=== PATIENT | female | born 1990 | race Caucasian/White ===

== ENCOUNTER → 2017-04-22 | Outpatient (CLI) | payer OTHER ==
[~2017-04-22] MED LIST: FERR27TA5; MULT-884
[2017-04-22 12:10] LABS: BASO % 0.2 %; BASO ABS # 0.01 K/uL (0-0.2); COMPLETE YES; EOS % 1.6 %; HEMATOCRIT 40.1 % (37-47); IG% 0.3 %; LYMPH % 15.7 %; LYMPH ABS # 0.96 K/uL (1.2-3.4); MEAN CELL VOLUME 83.7 fL (80-100); MEAN CORPUSCULAR HGB CONC 34.7 g/dl (32-36); MONO % 8.3 %; NEUT % 73.9 %; PLATELET COUNT 193 K/uL (130-400); RED BLOOD COUNT 4.79 M/uL (4.2-5.4); WHITE BLOOD COUNT 6.11 K/uL (4.8-10.8)
== END | disposition home or self-care (01) ==
LOC: C.LABBFT 08:29
PROVIDERS: ATTEND Nurse Practitioner
DX: D64.9 Anemia, unspecified (principal)

== ENCOUNTER 2021-09-16 09:03 | Inpatient (IN) ==
--- NOTE | 2021-09-16 09:37 | Emergency Department Note ---
History of Present Illness General Chief Complaint: Throat Pain Stated Complaint: BACTERIA INFECTION IN MOUTH, THROAT SWELLING UP Source: family (father) Mode of arrival: ambulatory Limitations: other (autism, severe) History of Present Illness Provider Complaint: + other (R facial submandibular swelling, hard to swallow) Onset (ago): 3 [address]) [address]: + home (Lives at [facility]) Severity: + severe Maximum Pain Intensity: 8 Quality: + aching Duration: + constant Relieved By: + none Associated symptoms: + other (no fever. hard to swallow. ) Treatments prior to arrival: + other (PCN through dentist. ) HPI Narrative: 30-year-old female presents emergency department with her father Increased right-sided facial swelling and pain over the last 3 to 4 days. Seen by the dentist and started on penicillin. Patient was told this is not related to her teeth but a bad soft tissue infection. Patient complained of difficulty swallowing and perhaps difficulty breathing today. There has been no vomiting, fever or drooling. Patient does have a history of developmental delay. Home Medications Medication Instructions Recorded Confirmed Type ferrous sulfate 325 mg (65 mg 325 mg PO QAM 09/16/21 09/16/21 History iron) tablet penicillin V potassium 500 mg 500 mg PO QAM 09/16/21 09/16/21 History tablet Allergies Allergy/AdvReac Type Severity Reaction Status Date / Time No Known Allergies Allergy Unverified 09/16/21 10:51 Past Med/Surg History Medical History Anemia Cough Developmental disability Surgical History Hx of removal of ovary Social History (Updated 09/16/21 @ 15:15 by Nellie Cruz MD) Smoking Status: Never smoker Hx Alcohol Use: No Hx Substance Use: No Preferred Language: [place] [employer] Required: No Beliefs That Will Affect Care: None marital status: Single Current Living Situation: Family Current Living Situation Comment: [facility] Feels Safe at Home: Yes Dental Care, Regularly: Yes Assistive Devices: None Review of Systems Unobtainable due to mental health condition History obtained largely from father. Physical Exam Vital Signs: Vital Signs - 24 hr 09/16/21 09:06 09/16/21 10:55 09/16/21 11:14 Temperature 36.7 C Temperature Source Temporal Artery Sc an Pulse Rate 82 Pulse Rate [Finger ] 73 83 Respiratory Rate 20 18 18 Respiratory Effort / Characteristics Non-Labored Respiratory Depth Normal Normal Blood Pressure 142/84 H Blood Pressure [Le ft Arm] 132/87 113/91 Blood Pressure Michelle n 103 Blood Pressure Michelle n [Left Arm] 102 98 Blood Pressure Pos ition [Left Arm] Lying Pulse Oximetry 98 98 96 Oxygen Delivery Me thod Room Air Room Air Sepsis Recent Feve r Within 48 Hours No Sepsis New/Unexpla ined Change in Men omar Status N/A Sepsis Action Take n by Nursing No Action Required Physical Exam: Vital signs reviewed. General: Well-appearing 30-year-old female, in no significant distress. HEENT: No scleral icterus, PERRLA, neck supple. Moist mucous membranes, positive trismus, saliva pooling under the tongue. Positive tenderness and soft tissue edema to the submandibular region without lymphadenopathy appreciated. There is no mass or fluctuance. No apparent cellulitis externally. TMs are clear bilaterally. Cardiovascular: Regular rate and rhythm, no extra sounds. Pulmonary: Clear to auscultation bilaterally, normal work of breathing. Abdomen: Soft, nontender, nondistended, positive bowel sounds. Musculoskeletal: Atraumatic, no peripheral edema. Neurologic: Patient awake alert and appropriate. Answers questions appropriately and at baseline according to parents. Skin: Warm, dry, no rash Course Administered Medications Chlorhexidine Gluconate (Chlorhexidine Gluconate 0.12% 480 Ml) 15 ml MT Q8 [facility] Stop: 10/16/21 21:59 Last Admin: 09/17/21 05:29 Dose: 15 ml Documented by: [id number] Admin: 09/16/21 21:28 Dose: 15 ml Documented by: [id number] Heparin Sodium (Porcine) (Heparin Sod 5,000 Unit/0.5 Ml Vial) 5,000 units SQ Q12 [facility] Stop: 10/16/21 20:59 Last Admin: 09/16/21 21:14 Dose: Not Given Documented by: [id number] Ampicillin Sodium/Sulbactam Sodium 3,000 mg/ Sodium Chloride 108 mls @ 200 mls/hr IV Q6H [facility]; Protocol Stop: 09/26/21 15:59 Last Infusion: 09/17/21 04:50 Dose: 0 mls/hr Documented by: [id number] Admin: 09/17/21 03:58 Dose: 200 mls/hr Documented by: [id number] Infusion: 09/16/21 22:12 Dose: 0 mls/hr Documented by: [id number] Admin: 09/16/21 21:22 Dose: 200 mls/hr Documented by: [id number] Infusion: 09/16/21 17:58 Dose: 0 mls/hr Documented by: [id number] Admin: 09/16/21 17:26 Dose: 200 mls/hr Documented by: [id number] Dexamethasone 10 mg/ Syringe 2.5 mls @ 1 mls/min IV Q8H [facility] Stop: 10/16/21 17:59 Last Admin: 09/17/21 02:14 Dose: 1 mls/min Documented by: [id number] Admin: 09/16/21 17:26 Dose: 1 mls/min Documented by: [id number] Discontinued Medications Dexamethasone (Dexamethasone Sod Inj 4 Mg/Ml Vial) 10 mg IV NOW STA Stop: 09/16/21 09:41 Last Admin: 09/16/21 09:57 Dose: 10 mg Documented by: [id number] Sodium Chloride (Nss 1000ml) 1,000 mls @ 999 mls/hr IV .Q1H1M ONE Stop: 09/16/21 10:40 Last Infusion: 09/16/21 10:56 Dose: 0 mls/hr Documented by: [id number] Admin: 09/16/21 09:50 Dose: 999 mls/hr Documented by: [id number] Ampicillin Sodium/Sulbactam Sodium 3,000 mg/ Sodium Chloride 108 mls @ 200 mls/hr IV NOW STA; Protocol Stop: 09/16/21 10:15 Last Infusion: 09/16/21 10:56 Dose: 0 mls/hr Documented by: [id number] Admin: 09/16/21 10:12 Dose: 200 mls/hr Documented by: [id number] Ioversol (Optiray 320 100ml) 94 ml IV ONCE ONE Stop: 09/16/21 11:07 Last Admin: 09/16/21 11:08 Dose: 94 ml Documented by: [id number] Medical Decision Making Differential Diagnosis Dental caries, dental abscess, Ludwigs angina, Vincent angina, dental fracture, facial cellulitis, parotitis, osteomyelitis, sinus infection, peritonsillar abscess. Medical Records Attestation: I reviewed the patient's medical records. Home Medications Current Medication List: was personally reviewed by me Laboratory Data Attestation: I reviewed the patient's lab results. Result diagrams: 09/17/21 04:52 09/16/21 09:50 Lab Results 09/16/21 09/16/21 09/16/21 Range/Units 09:50 09:50 09:50 WBC 6.93 (4.8-10.8) K/uL RBC 4.45 (4.2-5.4) M/uL Hgb 12.1 (12.0-16.0) g/dL Hct 36.6 L (37-47) % MCV 82.2 (80-100) fL MCH 27.2 (25-34) pg MCHC 33.1 (32-36) g/dL RDW Std Deviation 41.2 (36.4-46.3) fL RDW Coeff of Bridger 13.5 (11.5-14.5) % Plt Count 203 (130-400) K/uL MPV 10.5 H (7.4-10.4) fL Immature Gran % (Auto) 0.1 % Neut % (Auto) 76.2 % Lymph % (Auto) 13.9 % Nash % (Auto) 8.8 % Eos % (Auto) 1.0 % Baso % (Auto) 0.0 % Neut # (Auto) 5.28 (1.4-6.5) K/uL Lymph # (Auto) 0.96 L (1.2-3.4) K/uL Nash # (Auto) 0.61 H (0.11-0.59) K/uL Eos # (Auto) 0.07 (0-0.5) K/uL Baso # (Auto) 0.00 (0-0.2) K/uL Immature Gran # (Auto) 0.01 (0.00-0.02) K/uL Sodium 138 (136-145) mmol/L Potassium 3.7 (3.5-5.1) mmol/L Chloride 102 (98-107) mmol/L Carbon Dioxide 30 (21-32) mmol/L Anion Gap 6 (3-11) BUN 13 (6-23) mg/dl Creatinine 0.76 (0.6-1.2) mg/dl Est Cr Clr Drug Dosing 116.4 ml/min Est GFR ( Amer) 121.1 ml/min Est GFR (Non-Af Amer) 104.5 ml/min BUN/Creatinine Ratio 17.1 (10-20) Glucose 99 (70-99(Fasting)) mg/dl Lactate 0.7 (0.4-2.0) mmol/L Calcium 9.0 (8.5-10.1) mg/dl Total Bilirubin 0.8 (0.2-1.0) mg/dl AST 9 L (13-39) U/L ALT 26 (7-52) U/L Alkaline Phosphatase 80 (34-104) U/L Total Protein 7.1 (6.0-8.3) gm/dl Albumin 4.0 (3.4-5.0) gm/dl Globulin 3.1 (2.5-4.0) gm/dl Albumin/Globulin Ratio 1.3 (0.9-2) HCG, Qual (Negative) SARS-CoV-2, RNA, NAAT (NEGATIVE) 09/16/21 09/16/21 Range/Units 09:50 09:55 WBC (4.8-10.8) K/uL RBC (4.2-5.4) M/uL Hgb (12.0-16.0) g/dL Hct (37-47) % MCV (80-100) fL MCH (25-34) pg MCHC (32-36) g/dL RDW Std Deviation (36.4-46.3) fL RDW Coeff of Bridger (11.5-14.5) % Plt Count (130-400) K/uL MPV (7.4-10.4) fL Immature Gran % (Auto) % Neut % (Auto) % Lymph % (Auto) % Nash % (Auto) % Eos % (Auto) % Baso % (Auto) % Neut # (Auto) (1.4-6.5) K/uL Lymph # (Auto) (1.2-3.4) K/uL Nash # (Auto) (0.11-0.59) K/uL Eos # (Auto) (0-0.5) K/uL Baso # (Auto) (0-0.2) K/uL Immature Gran # (Auto) (0.00-0.02) K/uL Sodium (136-145) mmol/L Potassium (3.5-5.1) mmol/L Chloride (98-107) mmol/L Carbon Dioxide (21-32) mmol/L Anion Gap (3-11) BUN (6-23) mg/dl Creatinine (0.6-1.2) mg/dl Est Cr Clr Drug Dosing ml/min Est GFR ( Amer) ml/min Est GFR (Non-Af Amer) ml/min BUN/Creatinine Ratio (10-20) Glucose (70-99(Fasting)) mg/dl Lactate (0.4-2.0) mmol/L Calcium (8.5-10.1) mg/dl Total Bilirubin (0.2-1.0) mg/dl AST (13-39) U/L ALT (7-52) U/L Alkaline Phosphatase (34-104) U/L Total Protein (6.0-8.3) gm/dl Albumin (3.4-5.0) gm/dl Globulin (2.5-4.0) gm/dl Albumin/Globulin Ratio (0.9-2) HCG, Qual Negative (Negative) SARS-CoV-2, RNA, NAAT NEGATIVE (NEGATIVE) Imaging Data Radiologist's Impression: Soft Tissue Neck CT 09/16/21 09:40 CT soft tissue neck w con HISTORY: R facial and neck swelling, ? Ludwigs TECHNIQUE: Multiaxial CT images of the neck were performed following the intravenous administration of 94 cc of Optiray 320. Sagittal and coronal reformations were performed at the workstation by the radiologist. COMPARISON STUDY: None. FINDINGS: Suboptimal evaluation of the neck due to the motion artifact. The orbits and visualized brain parenchyma are unremarkable. The thyroid gland enhances normally. The lung apices are clear. No fractures within the visualized osseous structures. The major cervical vessels are likely patent. Epiglottis appears normal in thickness. There is asymmetric soft tissue thickening/edema along the right palatine tonsil and right aryepiglottic fold best seen on image 217. This results in effacement of the right piriform sinus. However, no si gnificant airway compromise at this time. Evaluation the of right mandibular region is suboptimal due to the motion artifact at this location. There is soft tissue thickening and mild inflammatory change at the angle of the right hemimandible and masseter muscle. No definite loculated fluid collections to suggest an abscess. There may be inflammatory change surrounding the right submandibular gland and inferior aspect of the right parotid gland. Prevertebral soft tissues appear grossly intact. No definite loculated fluid collections to suggest an abscess. No definite masses identified. There is mild skin thickening along the right mandible with a few prominent right submandibular lymph nodes. Small retention cyst within the left maxillary sinus. The mastoid air cells are hypoplastic but clear. No bony destruction. IMPRESSION: 1. Difficult evaluation of the neck due to the motion artifact. 2. Asymmetric soft tissue thickening and fat stranding centered at the angle of the right hemimandible which involves the right masseter muscle, right submandibular gland, inferior right parotid gland, right palatine tonsil, and right aryepiglottic fold. This favors an infectious process. No definite abscess or mass identified. 3. There is effacement of the right piriform sinus without significant airway compromise. 4. The epiglottis and prevertebral soft tissues appear normal in thickness. 5. No underlying bony destruction. ACT 112: Negative or not required by law. Electronically signed by: Kane Montes De Oca M.D. 09/16/2021 11:20 AM Blood Pressure Blood Pressure Findings: Normal blood pressure Blood Pressure Disposition: did not require urgent referral MDM Narrative This patient was evaluated and appeared to be in no significant distress. IV access was obtained and laboratory work was drawn. The patient was placed on a groundwater monitoring technician at 73 bpm. She was hydrated with normal saline solution and given Unasyn 3.[address] imaging of the soft tissues neck was performed and is read as below without any apparent abscess or drainable fluid collection. The airway is patent. There is significant inflammatory/change. Patient was g iven 10 mg of IV Decadron. The case was discussed with ENT who has recommended continued IV Unasyn and 10 mg of Decadron every 8 hours for the next [address] Perales will see the patient in the hospital and has requested hospitalist consultation. Patient's parents were updated regarding the plan and have agreed. Impression & Plan Sialoadenitis, Acute parotitis Discharge Plan Visit Data Chief Complaint: Throat Pain Stated Complaint: BACTERIA INFECTION IN MOUTH, THROAT SWELLING UP Discharge Problem: Sialoadenitis, Acute parotitis Patient Disposition: Admitted As Inpatient Discharge Instructions Interventions: ED Discharge Assessment Last Done: 09/16/21 14:43
[2021-09-16] MEDS ORDERED: SODIUM CHLORIDE 0.9% 1000ML 1,000 ML IV ONE (09:40)
[2021-09-16] MEDS ORDERED: DEXAMETHASONE SOD INJ 4 MG/ML VIAL IV STA (09:40)
[2021-09-16] MEDS ORDERED: AMPICILLIN/SULBACTAM SOD 3,000 MG in 0.9 % SODIUM CHLORIDE 100 ML IV STA (09:43)
[2021-09-16 10:09] LABS: Eosinophils # (auto) 0.07 K/uL (0-0.5); Hematocrit (blood only) 36.6 % (37-47); Hemoglobin 12.1 g/dL (12.0-16.0); Immature Granulocytes # (auto) 0.01 K/uL (0.00-0.02); Immature Granulocytes % (auto) 0.1 %; Lymphocytes # (auto) 0.96 K/uL (1.2-3.4); Lymphocytes % (auto) 13.9 %; Mean Corpuscular Hemoglobin 27.2 pg (25-34); Mean Corpuscular Hgb Conc 33.1 g/dL (32-36); Mean Corpuscular Volume 82.2 fL (80-100); Mean Platelet Volume 10.5 fL (7.4-10.4); Monocytes # (auto) 0.61 K/uL (0.11-0.59); Monocytes % (auto) 8.8 %; Neutrophils # (auto) 5.28 K/uL (1.4-6.5); Neutrophils % (auto) 76.2 %; Platelet Count 203 K/uL (130-400); RDW Coefficient of Variation 13.5 % (11.5-14.5); RDW Standard Deviation 41.2 fL (36.4-46.3); Red Blood Count 4.45 M/uL (4.2-5.4); White Blood Count 6.93 K/uL (4.8-10.8)
[2021-09-16 10:22] LABS: Pregnancy Test, Serum Negative (Negative)
[2021-09-16 10:58] LABS: Albumin Globulin Ratio 1.3 (0.9-2); BUN Creatinine Ratio 17.1 (10-20); Bilirubin,Total 0.8 mg/dl (0.2-1.0); Creatinine Clr Calc Pharmacy 116.4 ml/min; Est GFR (African American) 121.1 ml/min; Est GFR (Non-African American) 104.5 ml/min; Globulin 3.1 gm/dl (2.5-4.0); Potassium 3.7 mmol/L (3.5-5.1); Total Protein 7.1 gm/dl (6.0-8.3)
[2021-09-16] MEDS ORDERED: OPTIRAY 320 100ml IV ONE (11:06)
--- NOTE | 2021-09-16 11:21 | CT Scan Report ---
CT soft tissue neck w con HISTORY: R facial and neck swelling, ? Ludwigs TECHNIQUE: Multiaxial CT images of the neck were performed following the intravenous administration o f 94 cc of Optiray 320. Sagittal and coronal reformations were performed at the workstation by the ra diologist. COMPARISON STUDY: None. FINDINGS: Suboptimal evaluation of the neck due to the motion artifact. The orbits and visualized bra in parenchyma are unremarkable. The thyroid gland enhances normally. The lung apices are clear. No fr actures within the visualized osseous structures. The major cervical vessels are likely patent. Epigl ottis appears normal in thickness. There is asymmetric soft tissue thickening/edema along the right p alatine tonsil and right aryepiglottic fold best seen on image 217. This results in effacement of the right piriform sinus. However, no significant airway compromise at this time. Evaluation the of righ t mandibular region is suboptimal due to the motion artifact at this location. There is soft tissue t hickening and mild inflammatory change at the angle of the right hemimandible and masseter muscle. No definite loculated fluid collections to suggest an abscess. There may be inflammatory change surroun ding the right submandibular gland and inferior aspect of the right parotid gland. Prevertebral soft tissues appear grossly intact. No definite loculated fluid collections to suggest an abscess. No defi nite masses identified. There is mild skin thickening along the right mandible with a few prominent r ight submandibular lymph nodes. Small retention cyst within the left maxillary sinus. The mastoid air cells are hypoplastic but clear. No bony destruction. IMPRESSION: 1. Difficult evaluation of the neck due to the motion artifact. 2. Asymmetric soft tissue thickening and fat stranding centered at the angle of the right hemimandibl e which involves the right masseter muscle, right submandibular gland, inferior right parotid gland, right palatine tonsil, and right aryepiglottic fold. This favors an infectious process. No definite a bscess or mass identified. 3. There is effacement of the right piriform sinus without significant airway compromise. 4. The epiglottis and prevertebral soft tissues appear normal in thickness. 5. No underlying bony destruction. ACT 112: Negative or not required by law. Electronically signed by: Kane Montes De Oca M.D. 09/16/2021 11:20 AM
[2021-09-16] MEDS ORDERED: AMPICILLIN/SULBACTAM SOD 1,500 MG in 0.9 % SODIUM CHLORIDE 100 ML IV SCH (12:45)
--- NOTE | 2021-09-16 13:13 | History & Physical Report ---
Date of Service September 16, 2021 Assessment & Plan (1) Infection of mouth: Plan: Patient with infection of mouth/soft tissue of the neck vs. tooth/bone- without epiglottis or local cellulitis - Asymmetric soft tissue thickening and fat stranding centered at the angle of the right hemimandible which involves the right masseter muscle, right submandibular gland, inferior right parotid gland, right palatine tonsil, and right aryepiglottic fold. This favors an infectious process. No definite abscess or mass identified. - Patient is exquisite tender to right angle of the mandible and lateral submandibular space, anterior cervical lymph nodes and subclavian enlarged - Voice normal - Able to swallow sections - Without cellulitis or edema extending into the bilateral submandibular or anterior neck - ENT consulted appreciate assistance- Flex scope eval appreciated - OMF consult placed by ENT again thank you for assistance - Decadron 10mg IV q8 - Unasyn 3GM IV q6HR - Await blood cultures - Clears while pending surgical evaluation - PCU monitor airway for next 24-48 hours - OMFS will eval in AM (2) Developmental disability: Plan: - Family to stay with patient while in house for consents and medical decision making - Patient with limited ability to understand complex discussions (3) Anemia: Plan: FE deficient - Hold iron sulfate for now - resume when swelling decreases and/or s/p surgical eval History of Present Illness Primary Care Provider: Chloe Panchal MD 30 YOF with past medical history of: Developmental delay, Fe deficient anemia, ovary removal secondary to mass. Patient comes in today for 4-5 days of right sided tooth and jaw pain that has progressed to throat soarness and pain with swallowing. Patient went to dentist earlier in week and thought she may have infection under her right back molar. She was started on PCN. She had no improvement and was brought in today with her family. Reports chills on Saturday/ but no recorded fevers. She had no viral syndrome prior or other bacterial infection sympotms of URI prior. This started with tooth/jaw pain on the back right. She has pain with chewing on that side but has been able to chew and swallow soft diet at home, liquids, and her pills this morning. She is able to swallow her saliva and does not feel any dyspnea or that she is unable to take in a full breath. She is having pain with opening her mouth and can open her mouth approx 2 fingerbreadths, unable to fully visualize the hypopharynx or tonsillar pillars. In the EMD the patient had routine labs drawn to include blood cultures, soft tissue CT scan of the neck. EMD Dr. Cruz spoke with ENT Dr. Perales- reported that films reviewed- recommended Decadron 10mg q8 and Unasyn and will evaluate the patient. ENT consult continued- await evaluation vs. OMFS. Patient will be admitted to PCU for 24 hours to follow her symptoms and airway. Family will need to stay with patient as with her intellectual impairment to make medical decisions. Patient COVID test suraj admission is: NEGATIVE Allergies Allergy/AdvReac Type Severity Reaction Status Date / Time No Known Allergies Allergy Unverified 09/16/21 10:51 Home Medications Medication Instructions Recorded Confirmed Type ferrous sulfate 325 mg (65 mg 325 mg PO QAM 09/16/21 09/16/21 History iron) tablet penicillin V potassium 500 mg 500 mg PO QAM 09/16/21 09/16/21 History tablet Past Med/Surg History Medical History Anemia Cough Developmental disability Surgical History Hx of removal of ovary Social History (Updated 09/16/21 @ 15:15 by Nellie Cruz MD) Smoking Status: Never smoker Hx Alcohol Use: No Hx Substance Use: No Preferred Language: Eritrean Nursing Techn Required: No Beliefs That Will Affect Care: None marital status: Single Current Living Situation: Family Current Living Situation Comment: [facility] Feels Safe at Home: Yes Dental Care, Regularly: Yes Assistive Devices: None Review of Systems Review of Systems: REVIEW OF SYSTEMS: Constitutional: (+) chills, no fever, sweats Eyes: No diplopia, no worsening or blurred vision ENT: (+) pain right side back side of mouth, bone, with pain chewing, sore throat, swelling of right side of mouth, normal hearing, no trouble swallowing Respiratory: cough, sputum, dyspnea at rest or on exertion Cardiovascular: No chest pain, tightness or palpitations Abdomen: No pain, nausea, vomiting, diarrhea or constipation Musculoskeletal: No joint pain, calf pain, swelling Neurologic: No weakness, numbness/tingling, or balance problems Psychiatric: No anxiety or depression Skin: No rash or itch Physical Exam Physical Exam: PHYSICAL EXAM: General: awake, alert, no apparent distress, managing secretions Head: Normocephalic, atraumatic ENT: Pain with palpation with q-tip to right side mouth with pain to bone, and around to right lateral side, pain to parotid gland and submandibular pain on right side that is more full than the left side. No pain to soft palate, no abscess noted on CT scan. No tongue swelling, mouth opening at 2 finger breadths, unable to fully visualize the posterior pharynx or tonsillar pillars as limited by mouth opening. NO difficulty swallowing and voice is normal, no dyspnea Neuro: AAO x 3, speech clear and appropriate, strength intact bilaterally 5/5, sensation intact and equal all extremities and dermatomes, no pronator drift Chest: equal rise and fall of the chest, no accessory muscle use, no heaves or thrills, clear to auscultation, on room air, Cardiac: Regular rate and rhythm, telemetry reviewed, skin warm dry, cap refill <3 seconds, peripheral pulses +2 no JVD, no murmur, no JVD, no edema GI: NABS x 4 quadrants, soft, nontender to palpation, no rebound, guarding or tenderness : Spontaneously voiding, no pain, no CVA tenderness, Extremities: Normal inspection, no peripheral edema or erythema, calfs nontender to palpation Psych: Normal mood and affect Skin: no rash or erythema Results & Data Results & Data ([facility]) Vital Signs (Past 12 Hours) Vital Signs Temp Pulse Pulse Resp BP BP Pulse Ox 09/16/21 11:14 83 18 113/91 96 09/16/21 10:55 73 18 132/87 98 09/16/21 09:06 36.7 C 82 20 142/84 H 98 Laboratory Results Abnormal lab results 09/16/21 09/16/21 Range/Units 09:50 09:50 Hct 36.6 L (37-47) % MPV 10.5 H (7.4-10.4) fL Lymph # (Auto) 0.96 L (1.2-3.4) K/uL [place] # (Auto) 0.61 H (0.11-0.59) K/uL AST 9 L (13-39) U/L Diagnostic Findings Soft Tissue Neck CT 09/16/21 09:40 CT soft tissue neck w con HISTORY: R facial and neck swelling, ? Ludwigs TECHNIQUE: Multiaxial CT images of the neck were performed following the intravenous administration of 94 cc of Optiray 320. Sagittal and coronal reformations were performed at the workstation by the radiologist. COMPARISON STUDY: None. FINDINGS: Suboptimal evaluation of the neck due to the motion artifact. The orbits and visualized brain parenchyma are unremarkable. The thyroid gland enhances normally. The lung apices are clear. No fractures within the visualized osseous structures. The major cervical vessels are likely patent. Epiglottis appears normal in thickness. There is asymmetric soft tissue thickening/edema along the right palatine tonsil and right aryepiglottic fold best seen on image 217. This results in effacement of the right piriform sinus. However, no significant airway compromise at this time. Evaluation the of right mandibular region is suboptimal due to the motion artifact at this location. There is soft tissue thickening and mild inflammatory change at the angle of the right hemimandible and masseter muscle. No definite loculated fluid collections to suggest an abscess. There may be inflammatory change surrounding the right submandibular gland and inferior aspect of the right parotid gland. Prevertebral soft tissues appear grossly intact. No definite loculated fluid collections to suggest an abscess. No definite masses identified. There is mild skin thickening along the right mandible with a few prominent right submandibular lymph nodes. Small retention cyst within the left maxillary sinus. The mastoid air cells are hypoplastic but clear. No bony destruction. IMPRESSION: 1. Difficult evaluation of the neck due to the motion artifact. 2. Asymmetric soft tissue thickening and fat stranding centered at the angle of the right hemimandible which involves the right masseter muscle, right submandibular gland, inferior right parotid gland, right palatine tonsil, and right aryepiglottic fold. This favors an infectious process. No definite abscess or mass identified. 3. There is effacement of the right piriform sinus without significant airway compromise. 4. The epiglottis and prevertebral soft tissues appear normal in thickness. 5. No underlying bony destruction. ACT 112: Negative or not required by law. Electronically signed by: Kane Montes De Oca M.D. 09/16/2021 11:20 AM Medications Administered Discontinued Medications Dexamethasone (Dexamethasone Sod Inj 4 Mg/Ml Vial) 10 mg IV NOW STA Stop: 09/16/21 09:41 Last Admin: 09/16/21 09:57 Dose: 10 mg Documented by: [id number] Sodium Chloride (Nss 1000ml) 1,000 mls @ 999 mls/hr IV .Q1H1M ONE Stop: 09/16/21 10:40 Last Infusion: 09/16/21 10:56 Dose: 0 mls/hr Documented by: [id number] Admin: 09/16/21 09:50 Dose: 999 mls/hr Documented by: [id number] Ampicillin Sodium/Sulbactam Sodium 3,000 mg/ Sodium Chloride 108 mls @ 200 mls/hr IV NOW STA; Protocol Stop: 09/16/21 10:15 Last Infusion: 09/16/21 10:56 Dose: 0 mls/hr Documented by: [id number] Admin: 09/16/21 10:12 Dose: 200 mls/hr Documented by: [id number] Ioversol (Optiray 320 100ml) 94 ml IV ONCE ONE Stop: 09/16/21 11:07 Last Admin: 09/16/21 11:08 Dose: 94 ml Documented by: [id number] Home Medications ferrous sulfate 325 mg (65 mg iron) tablet 325 mg PO QAM 09/16/21 [History Confirmed 09/16/21] penicillin V potassium 500 mg tablet 500 mg PO QAM 09/16/21 [History Confirmed 09/16/21] Active Medications Ampicillin Sodium/Sulbactam Sodium 3,000 mg/ Sodium Chloride 108 mls @ 200 mls/hr IV Q6H POPEYE; Protocol Stop: 09/26/21 15:44 ECG Additional Comments: Not obtained Code Status & VTE Plan Code Status CODE: FULL VTE: SCDS, Heparin sq VTE Prophylaxis Plan VTE Prophylaxis will be ordered: Yes Supervising Physician Co-Signing Physician Notes Patient seen and examined, chart reviewed, case discussed with Danny Mcgill and I agree with the assessment and plan except as otherwise noted above. General: Pleasant, cooperative. Oriented to place and name. HEENT: Right submandibular asymmetrical swelling, trismus is present. No drooling. Able to swallow secretions. Pulm: CTAB A&P. -wheezes, -rales, -rhonchi. Symmetrical chest rise. No increase work of breathing. No respiratory distress. Cardiac: RRR, -mrg. Radial pulses intact and symmetrical. Abdominal: Nontender, nondistended, soft. BS present. Extremities: Moves all extremities equally, intact. All labs and images reviewed 30[facility] F [facility] [place] who presents with difficulty breathing and right jaw/neck swelling oral infection. Unilateral. CT as above shows asymmetr ic soft tissue thickening and fat stranding at the right hemimandible. Airway patent on evaluation. was discussed with ENT by ER provider, recommended for dexamethasone 10 mg every 8 hours and Unasyn therapy. No evidence of abscess on imaging. ENT to see, pending Fluck scope eval. With plan as above. PG Care Time/CCT Total # of Minutes Spent Total Time Spent with Patient: Total time spent is greater than 50% in coordination of care (as documented) at patient's floor/unit and/or counseling patient: Coding Level of Care Code 59260 Initial Inpt Care Lvl 3 Diagnoses Infection of mouth K12.2 Developmental disability F89 Anemia D64.9
--- NOTE | 2021-09-16 13:34 | ENT Consultation ---
Date of Consultation September 16, 2021 Assessment & Plan (1) Infection of mouth: (2) Sialoadenitis: 30yF h/o autism with R oral infection extending to masseter and R parotid and SMG. Mild edema of palatine tonsil, epiglottis, and AE fold. Larynx briefly visualized on FFL and airway appears widely patent. No obvious abscess on CT. No clinical signs of Mj's angina. -Admit to hospitalist -Unasyn -Decadron 10mg Q8H x48 hours -Clears, may advance to full liquid diet if improving. No plans for operative intervention at this point -Continuous pulse ox -Hydration, massage over R parotid gland, warm compresses, sialogogues -Will discuss CT with oral surgery to ensure no early subperiosteal abscess -Will continue to follow History of Present Illness Reason for Consultation: R facial swelling, throat pain History of Present Illness 30yF h/o autism presented to ED with several day progressive R facial swelling and jaw pain. Seen by dentist and started on PCN earlier this week. Worsened discomfort and now odynophagia/throat pain so came to ED. Parents provide supplemental history. No otalgia, dysphonia, dyspnea/stridor. Afebrile, WBC wnl. CT neck with contrast per my review shows inflammatory changes of R parotid, masseter, SMG, oropharynx extending to AE fold. No obvious abscess, very small subtle subperiosteal hypodensity medial to 3rd R maxillary molar without rim enhancement, no clear cortical erosion. FHx noncontributory Allergies Allergy/AdvReac Type Severity Reaction Status Date / Time No Known Allergies Allergy Unverified 09/16/21 10:51 Home Medications Medication Instructions Recorded Confirmed Type ferrous sulfate 325 mg (65 mg 325 mg PO QAM 09/16/21 09/16/21 History iron) tablet penicillin V potassium 500 mg 500 mg PO QAM 09/16/21 09/16/21 History tablet Patient History Medical History Anemia Cough Developmental disability Surgical History Hx of removal of ovary Social History Smoking Status: Never smoker Feels Safe at Home: Yes Review of Systems Review of Systems: A 10 point ROS is negative except as noted above Physical Exam Physical Exam: General: The patient is well-developed, well-nourished, and in no acute distress. Head and Face: Skull: No obvious deformities Salivary glands: Tenderness and induration over R parotid and SMG without cellulitis, stone, or abscess. Facial strength: Facial motion is symmetric and without weakness. Eyes: Eyelids: There is no periorbital edema. Conjunctiva: There is no conjunctival erythema. Extraocular muscles: Extraocular movement is normal. Nystagmus: There is no nystagmus. Ears: Right auricle: The pinna is normally formed without skin lesion or mass. Left auricle: The pinna is normally formed without skin lesion or mass. Right EAC: Moderate cerumen. There is no external auditory canal erythema, edema, lesion, or mass. Left EAC: There is no external auditory canal erythema, edema, lesion, or mass. Right TM/middle ear: TM is intact without perforation, flat, and translucent. The middle ear space is clear Left TM/middle ear: TM is intact without perforation, flat, and translucent. The middle ear space is clear Hearing: Clinical speech senior receptionist threshold testing is grossly normal. Nose: External: There is no gross external deformity, tenderness, or skin lesion or mass. Mucosa: There is no nasal mucosal edema, inflammation, lesion, or mass. Septum: The nasal septum is midline. Nasal cavity: There is no inferior turbinate hypertrophy, edema, inflammation, or mass bilaterally. The inferior meatus and middle meatus were clear bilaterally without mass, lesion, mucopurulence, or polyposis. Oral cavity/Oropharynx: Lips: There are no lip lesions or masses. Oral cavity: Moderate dentition. Sig trismus, approx 2-3cm oral opening. No obvious dental abscess. Normal ROM of tongue. FOM soft Oropharynx: Mild erythema R tonsil/oropharynx without bulging, soft palate edema, uvular deviation. Neck: General: There are no visible scars or lesions involving the neck. There are no visible or palpable masses involving the neck. The trachea is midline. Lymph nodes: There is no visible or palpable neck lymphadenopathy. Respiratory/Pulmonary: There is no stertor or stridor. There is normal respiratory effort without acute distress. Cardiovascular: There is no visible extremity edema. Skin: There are no visible lesions or masses involving the skin of the head and neck region. Neurological: Cranial nerves: Cranial nerve II is noted to be intact by grossly normal visual acuity. Cranial nerves III, IV, and are noted to be intact by normal extraocular movements. Cranial nerve VII is noted to be intact by symmetric and normal facial movement. Cranial nerve VIII is noted to be intact by a relatively normal clinical speech senior receptionist threshold. Cranial nerve IX is noted to be intact by an intact gag reflex and normal palatal movement. Cranial nerve X is noted to be intact by a normal voice. Cranial nerve XI is noted to be intact by normal shoulder and head movement. Cranial nerve XII is noted to be intact by normal symmetric tongue movement. Vestibular system: There is no spontaneous or gaze evoked nystagmus. Psychiatric: Mental status: The patient is awake and alert. Mood/affect: The patient has a normal mood and affect. Procedure: Flexible fiberoptic laryngoscopy Indication: throat pain, odynophagia Details: Following the topical application of afrin and lidocaine, the flexible laryngoscope was inserted into the nasal cavity. The septum, turbinates, and nasal mucosa were normal. The nasopharynx was normal. Exam was limited by patient cooperation despite several assistants holding. The base of tongue and vallecula were normal. There was mild edema of the R epiglottis and AE fold. The true vocal folds were normal without masses or lesions. I was unable to assess vocal fold mobility or the hypopharynx. The patient tolerated the procedure poorly but no complications. Results & Data ([facility]) Vital Signs (Past 12 Hours) Vital Signs Temp Pulse Pulse Resp BP BP Pulse Ox 09/16/21 13:13 119 H 20 133/96 96 09/16/21 11:14 83 18 113/91 96 09/16/21 10:55 73 18 132/87 98 09/16/21 09:06 36.7 C 82 20 142/84 H 98 PG Care Time/CCT Total # of Minutes Spent Total Time Spent with Patient: Total time spent is greater than 50% in coordination of care (as documented) at patient's floor/unit and/or counseling patient: Coding Level of Care Code 29952 Office/OBS Consult Lvl 4 (25 - SIGNIFICANT, SEPARATELY IDENTIFIABLE ) Diagnoses Infection of mouth K12.2 Sialoadenitis K11.20 CPT Codes LARYNGOSCOPY DIAGNOSTIC FLEXIBLE - 18037 ([id number])
[2021-09-16] MEDS ORDERED: ONDANSETRON INJ 2 MG/ML 2 ML VIAL IV PRN (14:21)
[2021-09-16] MEDS ORDERED: ACETAMINOPHEN 325 MG TAB PO PRN ×2 (14:21→17:20)
[2021-09-16] MEDS: dexAMETHasone 10 MG in SYRINGE 0 ML IV SCH (17:26)
[2021-09-16] MEDS: AMPICILLIN/SULBACTAM SOD 3,000 MG in 0.9 % SODIUM CHLORIDE 100 ML IV SCH ×2 (17:26→21:22)
--- NOTE | 2021-09-16 18:57 | Oral/Maxillofacial Consult ---
Date of Consultation September 16, 2021 Assessment & Plan (1) Carious teeth: (2) Gum inflammation: (3) Infection of mouth: (4) Developmental disability: History of Present Illness Reason for Consultation: Requested by Dr Perales to evaluate for dental etiology Requesting Physician: Dr Katy Perales Attending Physician: Wyatt Gonzales MD History of Present Illness Oral Maxillofacial Surgery Exam and chart review Present Complaint: On Sep 11 Bhavani told her parents that her lower back molar was hurting. According to her father he did not see any redness or swelling Symptoms have been ongoing for a while. The discomfort continued and she was taken to the family dentist Dr Sumeet Block in [place] on SatSep 13. He told the family that there was a soft tissue infection behind the lower right last tooth and placed her on antibiotics. No follow up or treatment plan was discussed. Despite the antibiotics the pain continued and swelling and jaw stiffness started. Her parents took her to the ER this morning. Her complaint was that her throat was swollen and the ER staff consulter ENT elementary education teacher Dr Perales. Dr Perales evaluated Bhavani and did a GLAZING MACHINE OPERATOR and determined that her airway was opened. Dr Perales felt that the etiology of the present infection is from the lower right teeth and asked me to evaluate this further. I was able to determine that the lower right wisdom tooth and # 31 are likely the cause of the infection. The prior dental pain, developing into swelling and the location of the radiolucent area under # 31 and possible fractured wisdom tooth points to this as the etiology. Oral Exam: Finding-- tender gingival tissue with deep pocket formation, distal to # 31 There is a very large filling in # 31 which is close to the nerve. A radiolucent periapical lesion is noted on CT scan. Tooth is somewhat tender. Still limited opening, I will get a better view once we take her to the OR this afternoon. Imaging: see discussing above Soft tissue: floor of the mouth, tongue, hard/soft palate, posterior pharyngeal area all with in normal limits, no pathology or abnormal findings noted. No lesions noted that require follow up or Bx. Tenderness right posterior area of the lower jaw No swelling or evidence of gland infection Oral Care: Overall oral care is fair Occlusion: Class III prognathic lower jaw TMJ exam: No pop, clicking, pain, good ROM, No history of TMJ injury or dysfunction Periodontal exam: Overall Healthy gingival tissue without evidence of periodontal pathology. Head/Neck exam: Neck is supple, FROM, Able to extend and flex neck w/o difficulty, no masses, no abnormalities, no airway issues, no evidence of sleep apnea. Treatment Plan: Set up with general anesthesia in hospital due to complexity of the procedure for extraction of # 31 and possible intraoral I&D of the tender gingival tissue distal to # 31 I reviewed the treatment plan and consent with the patient and mother/father. Understanding was expressed. Time was given for questions regarding the surgery, risks and post op care. Discussed alternative to treatment--procedure as planned, Do not do surgery The # 31 tooth has a large ? failing evangelical and is the cause of the current issue, removal is indicated and medically necessary. The following teeth are decayed and fractured and removal is indicated JING:#31 Risks discussed: Bleeding,Pain,swelling,infection, dry socket, delayed healing, nerve injury to face,lips,tongue,chin area which could be permanent (rare). TMJ, jaw stiffness, change in bite (rare), ear pain (referred). Sinus problems like fistula or infection. Need to leave a small root fragment in place to avoid injury to nerve or sinus. Relationship of wisdom teeth to nerve/sinus and risk of jaw fracture. Home care reviewed: tooth brushing, rinsing, follow up care with Dr Herrera. diet=[id number] dental. Discussed activity level while on Rx pain Meds. Surgery to be set up today in the afternoon with GA. Allergies Allergy/AdvReac Type Severity Reaction Status Date / Time No Known Allergies Allergy Unverified 09/16/21 10:51 Home Medications Medication Instructions Recorded Confirmed Type ferrous sulfate 325 mg (65 mg 325 mg PO QAM 09/16/21 09/16/21 History iron) tablet penicillin V potassium 500 mg 500 mg PO QAM 09/16/21 09/16/21 History tablet Patient History Medical History Anemia Cough Developmental disability Surgical History Hx of removal of ovary Social History (Updated 09/16/21 @ 15:15 by Nellie Cruz MD) Smoking Status: Never smoker Hx Alcohol Use: No Hx Substance Use: No Preferred Language: Kinyarwanda Shearing Shed Worker Required: No Beliefs That Will Affect Care: None marital status: Single Current Living Situation: Family Current Living Situation Comment: [facility] Feels Safe at Home: Yes Dental Care, Regularly: Yes Assistive Devices: None Results & Data ([facility]) Vital Signs (Past 12 Hours) Vital Signs Temp Pulse Pulse Resp BP BP Pulse Ox 09/16/21 14:43 75 18 118/84 95 09/16/21 13:13 119 H 20 133/96 96 09/16/21 11:14 83 18 113/91 96 09/16/21 10:55 73 18 132/87 98 09/16/21 09:06 36.7 C 82 20 142/84 H 98 PG Care Time/CCT Total # of Minutes Spent Total Time Spent with Patient: Total time spent is greater than 50% in coordination of care (as documented) at patient's floor/unit and/or counseling patient: Coding Level of Care Code 39219 Inpt Consult Level 3 Diagnoses Carious teeth K02.9 Gum inflammation K05.10 Infection of mouth K12.2 Developmental disability F89
[2021-09-16] MEDS: HEPARIN SOD 5,000 UNIT/0.5 ML VIAL SQ SCH (21:14)
[2021-09-16] MEDS: CHLORHEXIDINE GLUCONATE 0.12% 480 ML MT SCH (21:28)
[2021-09-17] MEDS: dexAMETHasone 10 MG in SYRINGE 0 ML IV SCH ×3 (02:14→17:23)
[2021-09-17] MEDS: AMPICILLIN/SULBACTAM SOD 3,000 MG in 0.9 % SODIUM CHLORIDE 100 ML IV SCH ×4 (03:58→22:06)
[2021-09-17] MEDS: CHLORHEXIDINE GLUCONATE 0.12% 480 ML MT SCH ×3 (05:29→21:58)
[2021-09-17 05:41] LABS: Basophils # (auto) 0.01 K/uL (0-0.2); Basophils % (auto) 0.1 %; Hemoglobin 11.1 g/dL (12.0-16.0); Immature Granulocytes # (auto) 0.03 K/uL (0.00-0.02); Immature Granulocytes % (auto) 0.3 %; Lymphocytes # (auto) 0.82 K/uL (1.2-3.4); Lymphocytes % (auto) 8.9 %; Mean Corpuscular Hemoglobin 26.6 pg (25-34); Mean Corpuscular Hgb Conc 32.6 g/dL (32-36); Mean Corpuscular Volume 81.5 fL (80-100); Mean Platelet Volume 10.3 fL (7.4-10.4); Monocytes # (auto) 0.34 K/uL (0.11-0.59); Monocytes % (auto) 3.7 %; Neutrophils # (auto) 7.99 K/uL (1.4-6.5); Platelet Count 241 K/uL (130-400); RDW Coefficient of Variation 13.1 % (11.5-14.5); RDW Standard Deviation 38.8 fL (36.4-46.3); Red Blood Count 4.17 M/uL (4.2-5.4); White Blood Count 9.19 K/uL (4.8-10.8)
[2021-09-17 06:09] LABS: BUN Creatinine Ratio 15.3 (10-20); Creatinine Clr Calc Pharmacy 145.7 ml/min; Est GFR (African American) 141.6 ml/min; Est GFR (Non-African American) 122.1 ml/min; Magnesium 2.1 mg/dl (1.7-2.4); Potassium 3.8 mmol/L (3.5-5.1)
[2021-09-17] MEDS: HEPARIN SOD 5,000 UNIT/0.5 ML VIAL SQ SCH ×2 (07:56→21:57)
--- NOTE | 2021-09-17 09:22 | Ears,Nose,Throat Progress Note ---
Date of Service September 17, 2021 Assessment & Plan (1) Infection of mouth: (2) Sialoadenitis: Plan: 30yF h/o autism with R oral infection extending to masseter and R parotid and SMG. Improving on IV abx/steroids. No airway symptoms. Larynx briefly visualized yesterday on FFL and airway appears widely patent. No clinical signs of Mj's angina. -Care per primary team -Unasyn -Decadron 10mg Q8H x48 hours -Continuous pulse ox -Hydration, massage over R parotid gland, warm compresses, sialogogues -Likely to OR today for dental extraction, plan per Dr. Herrera -Will follow peripherally Admission and Anticipated Discharge Date Admission Date: September 16, 2021 Subjective NARAYAN o/n. Feeling improved, pain better. Trismus improved. Swallowing saliva without pain. No dyspnea or stridor, no dysphonia. Physical Exam Physical Exam: WNWD, NAD AFVSS EOMI, normal sclera Improved trismus, 3cm opening FOM soft Full ROM tongue Ongoing induration over R parotid, no cellulitis, palpable abscess or stone. Clear saliva from Bakari's duct Oropharynx clear, no erythema/edema Neck softer, less tender over SMG Nonlabored respirations, no stridor No dysphonia Results & Data ([facility]) Vital Signs (Past 12 Hours) Vital Signs Temp Pulse Resp BP Pulse Ox 09/17/21 08:00 36.8 C 85 20 130/72 96 09/17/21 04:32 36.7 C PG Care Time/CCT Total # of Minutes Spent Total Time Spent with Patient: Total time spent is greater than 50% in coordination of care (as documented) at patient's floor/unit and/or counseling patient: Coding Level of Care Code 67660 Subseq Hosp Care Lvl 2 Diagnoses Infection of mouth K12.2 Sialoadenitis K11.20
--- NOTE | 2021-09-17 11:18 | Hospitalist Progress Note ---
Date of Service September 17, 2021 Assessment & Plan (1) Infection of mouth: Plan: Patient with infection of mouth/soft tissue of the neck vs. tooth/bone- without epiglottis or local cellulitis - Asymmetric soft tissue thickening and fat stranding centered at the angle of the right hemimandible which involves the right masseter muscle, right submandibular gland, inferior right parotid gland, right palatine tonsil, and right aryepiglottic fold. This favors an infectious process. No definite abscess or mass identified. - Patient is exquisite tender to right angle of the mandible and lateral submandibular space, anterior cervical lymph nodes and subclavian enlarged - Voice normal - Able to swallow sections - Without cellulitis or edema extending into the bilateral submandibular or anterior neck - ENT consulted appreciate assistance- Flex scope eval appreciated - OMF consult placed by ENT again thank you for assistance - Decadron 10mg IV q8 - Unasyn 3GM IV q6HR - Await blood cultures - Clears while pending surgical evaluation - PCU monitor airway for next 24-48 hours - OMFS will eval in AM 09/17/21- Improved with steroids and ABX therapy- appreciate coordination by ENT and OMFS - Patient NPO for planned excision and I&D by Dr. Herrera OMFS today at 1400 - Patient airway directly visualized by ENT yesterday- no airway compromise and chords visable- no abscess noted - Symptoms improved today in regards to pain and swelling - No pain medications overnight utilized - Transfer to Medical Surgical Floor today - likely be able to be discharged tomorrow - Continue VTE prophylaxis tonight (2) Developmental disability: Plan: - Family to stay with patient while in house for consents and medical decision making - Patient with limited ability to understand complex discussions (3) Anemia: Plan: FE deficient - Hold iron sulfate for now - resume when swelling decreases and/or s/p surgical eval Admission and Anticipated Discharge Date Admission Date: September 16, 2021 Subjective Patient is HD #1 admitted for mouth infection, pain, sore throat and swelling to her face and submandibular area: Appreciate ENT and OMFS assistance. Patient is NPO for planned OR with OMFS Dr. Herrera to day for incision and drainage of her wisdom teeth. Patient was started on Unasyn and Steroids yesterday, improved since yesterday, she is in better spirits as pain is controlled and she is able to speak and move her jaw better. Swelling is reduced on the right side of her face and is also not as tender. Will keep in house for ABX coverage following surgical findings today. Likely be able to go home tomorrow. Review of Systems Review of Systems: REVIEW OF SYSTEMS: Constitutional: (+) chills, no fever, sweats Eyes: No diplopia, no worsening or blurred vision ENT: (+) pain right side back side of mouth, bone, with pain chewing, sore throat, swelling of right side of mouth, normal hearing, no trouble swallowing Respiratory: cough, sputum, dyspnea at rest or on exertion Cardiovascular: No chest pain, tightness or palpitations Abdomen: No pain, nausea, vomiting, diarrhea or constipation Musculoskeletal: No joint pain, calf pain, swelling Neurologic: No weakness, numbness/tingling, or balance problems Psychiatric: No anxiety or depression Skin: No rash or itch Physical Exam Physical Exam: PHYSICAL EXAM: General: awake, alert, no apparent distress, managing secretions Head: Normocephalic, atraumatic ENT: Pain with palpation with q-tip to right side mouth with pain to bone, and around to right lateral side, pain to parotid gland and submandibular pain on right side that is more full than the left side. No pain to soft palate. No tongue swelling, mouth opening at 2 1/2finger breadths, unable to fully visualize the posterior pharynx or tonsillar pillars as limited by mouth opening. NO difficulty swallowing and voice is normal, no dyspnea Neuro: AAO x 3, speech clear and appropriate, strength intact bilaterally 5/5, sensation intact and equal all extremities and dermatomes, no pronator drift Chest: equal rise and fall of the chest, no accessory muscle use, no heaves or thrills, clear to auscultation, on room air, Cardiac: Regular rate and rhythm, telemetry reviewed, skin warm dry, cap refill <3 seconds, peripheral pulses +2 no JVD, no murmur, no JVD, no edema GI: NABS x 4 quadrants, soft, nontender to palpation, no rebound, guarding or tenderness : Spontaneously voiding, no pain, no CVA tenderness, Extremities: Normal inspection, no peripheral edema or erythema, calfs nontender to palpation Psych: Normal mood and affect Skin: no rash or erythema Results & Data Results & Data ([facility]) Vital Signs (Past 12 Hours) Vital Signs Temp Pulse Resp BP Pulse Ox 09/17/21 08:00 36.8 C 85 20 130/72 96 09/17/21 04:32 36.7 C Laboratory Results Abnormal lab results 09/17/21 09/17/21 Range/Units 04:52 04:52 RBC 4.17 L (4.2-5.4) M/uL Hgb 11.1 L (12.0-16.0) g/dL Hct 34.0 L (37-47) % Neut # (Auto) 7.99 H (1.4-6.5) K/uL Lymph # (Auto) 0.82 L (1.2-3.4) K/uL Immature Gran # (Auto) 0.03 H (0.00-0.02) K/uL Creatinine 0.59 L (0.6-1.2) mg/dl Glucose 124 H (70-99(Fasting)) mg/dl Medications Administered Chlorhexidine Gluconate (Chlorhexidine Gluconate 0.12% 480 Ml) 15 ml MT Q8 [facility] Stop: 10/16/21 21:59 Last Admin: 09/17/21 05:29 Dose: 15 ml Documented by: [id number] Admin: 09/16/21 21:28 Dose: 15 ml Documented by: [id number] Heparin Sodium (Porcine) (Heparin Sod 5,000 Unit/0.5 Ml Vial) 5,000 units SQ Q12 [facility] Stop: 10/16/21 20:59 Last Admin: 09/17/21 07:56 Dose: Not Given Documented by: [id number] Admin: 09/16/21 21:14 Dose: Not Given Documented by: [id number] Ampicillin Sodium/Sulbactam Sodium 3,000 mg/ Sodium Chloride 108 mls @ 200 mls/hr IV Q6H [facility]; Protocol Stop: 09/26/21 15:59 Last Infusion: 09/17/21 04:50 Dose: 0 mls/hr Documented by: [id number] Admin: 09/17/21 03:58 Dose: 200 mls/hr Documented by: [id number] Infusion: 09/16/21 22:12 Dose: 0 mls/hr Documented by: [id number] Admin: 09/16/21 21:22 Dose: 200 mls/hr Documented by: [id number] Infusion: 09/16/21 17:58 Dose: 0 mls/hr Documented by: [id number] Admin: 09/16/21 17:26 Dose: 200 mls/hr Documented by: [id number] Dexamethasone 10 mg/ Syringe 2.5 mls @ 1 mls/min IV Q8H [facility] Stop: 10/16/21 17:59 Last Admin: 09/17/21 02:14 Dose: 1 mls/min Documented by: [id number] Admin: 09/16/21 17:26 Dose: 1 mls/min Documented by: [id number] Discontinued Medications Dexamethasone (Dexamethasone Sod Inj 4 Mg/Ml Vial) 10 mg IV NOW STA Stop: 09/16/21 09:41 Last Admin: 09/16/21 09:57 Dose: 10 mg Documented by: [id number] Sodium Chloride (Nss 1000ml) 1,000 mls @ 999 mls/hr IV .Q1H1M ONE Stop: 09/16/21 10:40 Last Infusion: 09/16/21 10:56 Dose: 0 mls/hr Documented by: [id number] Admin: 09/16/21 09:50 Dose: 999 mls/hr Documented by: [id number] Ampicillin Sodium/Sulbactam Sodium 3,000 mg/ Sodium Chloride 108 mls @ 200 mls/hr IV NOW STA; Protocol Stop: 09/16/21 10:15 Last Infusion: 09/16/21 10:56 Dose: 0 mls/hr Documented by: [id number] Admin: 09/16/21 10:12 Dose: 200 mls/hr Documented by: [id number] Ioversol (Optiray 320 100ml) 94 ml IV ONCE ONE Stop: 09/16/21 11:07 Last Admin: 09/16/21 11:08 Dose: 94 ml Documented by: [id number] PG Care Time/CCT Total # of Minutes Spent Total Time Spent with Patient: Total time spent is greater than 50% in coordination of care (as documented) at patient's floor/unit and/or counseling patient: Coding Level of Care Code 65857 Subseq Hosp Care Lvl 3 Diagnoses Infection of mouth K12.2 Developmental disability F89 Anemia D64.9
--- NOTE | 2021-09-17 12:19 | Anesthesiology Consultation ---
Date of Service September 17, 2021 Assessment & Plan ASA ASA2 Proposed Anesthesia Anesthesia Type: General Risk / Benefits Reviewed With: PT / POA / Parent / Guardian, Accepts Plan and Informed Consent Obtained History Surgery Operation Date: 09/17/21 14:00 Proposed Procedures p Excision #31, Incision and drainage intraoral(Not Applicable) - Bebeto Herrera, DMD Height/Weight Height: 5 ft 6 in Weight: 78.1 kg Allergies Allergy/AdvReac Type Severity Reaction Status Date / Time No Known Allergies Allergy Unverified 09/16/21 10:51 Medications Home Medications Medication Instructions Recorded Confirmed Last Taken ferrous sulfate 325 mg (65 mg 325 mg PO QAM 09/16/21 09/16/21 09/15/21 iron) tablet penicillin V potassium 500 mg 500 mg PO QAM 09/16/21 09/16/21 09/16/21 08:00 tablet Active Medications Generic Name Dose Route Start Last Admin Trade Name Freq PRN Reason Stop Dose Admin Chlorhexidine Gluconate 15 ml 09/16/21 22:00 09/17/21 05:29 Chlorhexidine Gluconate 0.12% 480 Ml MT 10/16/21 21:59 15 ml Q8 [facility] Administration Heparin Sodium (Porcine) 5,000 units 09/16/21 21:00 09/17/21 07:56 Heparin Sod 5,000 Unit/0.5 Ml Vial SQ 10/16/21 20:59 Not Given Q12 [facility] Ampicillin Sodium/Sulbactam 108 mls @ 200 mls/hr 09/16/21 16:00 09/17/21 11:53 Sodium 3,000 mg/ Sodium IV 09/26/21 15:59 Infused Chloride Q6H [facility] Infusion Protocol Dexamethasone 10 mg/ Syringe 2.5 mls @ 1 mls/min 09/16/21 18:00 09/17/21 11:16 IV 10/16/21 17:59 1 mls/min Q8H [facility] Administration NPO Date Last Intake of Fluids: 09/17/21 Time Last Intake of Fluids: 00:01 Date Last Intake of Solids: 09/17/21 Time Last Intake of Solids: 00:01 Past Medical History Medical History Anemia Cough Developmental disability Exercise / Class Metabolic Activity II 4-5 Yardwork/Stairs/Walk up hill Past Surgical History Surgical History Hx of removal of ovary Past Anesthesia History No Hx of Anesthesia Complications and No Family Hx of Anesthesia Complications History of PONV No Hx of PONV and No Hx of Motion Sickness Social History Smoking Status: Never smoker Hx Alcohol Use: No Hx Substance Use: No Review of Systems denies fever/cough/ colds/ chest pain/ SOB/ BEBO denies BEBO Physical Exam Vital Signs Last Vital Signs Temp 36.8 C 09/17/21 12:00 Pulse 82 09/17/21 12:00 Resp 20 09/17/21 12:00 BP 126/78 09/17/21 12:00 Pulse Ox 96 09/17/21 12:00 ENMT Mouth: no TMJ abnormality and no dentition abnormality Thyromental Distance: > or= 3.5 Finger Breadths Mallampati Class: II Neck neck extension not limited Respiratory normal respiratory effort; no respiratory distress Auscultation: lungs clear to auscultation bilaterally Cardiovascular Rate/Rhythm: regular rate and regular rhythm Neurologic moves all extremities Psychiatric Orientation: alert and oriented x 3 Testing Laboratory Results 09/17/21 04:52 09/17/21 04:52 09/16/21 10:10 Aerobic Blood Culture - Preliminary Blood No growth in Aerobic bottle after 24 hours. Anaerobic Blood Culture - Preliminary No growth in Anaerobic bottle after 24 hours. 09/16/21 09:50 Aerobic Blood Culture - Preliminary Blood No growth in Aerobic bottle after 24 hours. Anaerobic Blood Culture - Preliminary No growth in Anaerobic bottle after 24 hours.
[2021-09-17] MEDS ORDERED: BUPIVACAINE/EPINEPHRINE 0.5% 1:200,000 1.8 ML CARP ONE (12:45)
[2021-09-17] MEDS ORDERED: OXYMETAZOLINE 0.05% 30 ML BTL ONE (12:55)
[2021-09-17] MEDS ORDERED: LIDOCAINE 2% JELLY 5 ML TUBE ONE (12:55)
[2021-09-17] MEDS ORDERED: GLYCOPYRROLATE 0.2 MG/ML VIAL ONE (13:06)
[2021-09-17] MEDS ORDERED: DEXAMETHASONE SOD INJ 4 MG/ML VIAL ONE (13:06)
[2021-09-17] MEDS ORDERED: LIDOCAINE 2% 2 ML VIAL/AMP(20MG/ML) INFIL ONE (13:06)
[2021-09-17] MEDS ORDERED: MIDAZOLAM HCL 1 MG/ML 2ML VIAL ONE (13:06)
[2021-09-17] MEDS ORDERED: ONDANSETRON INJ 2 MG/ML 2 ML VIAL ONE (13:06)
[2021-09-17] MEDS ORDERED: PROPOFOL IV EMULSION 10 MG/ML 20 ML VIAL IV ONE (13:06)
[2021-09-17] MEDS ORDERED: NEOSTIGMINE METHYLSULFATE 1 MG/ML 10ML VIAL ONE (13:06)
[2021-09-17] MEDS ORDERED: fentaNYL citrate 100 MCG/2 ML VIAL ONE ×3 (13:06→14:40)
[2021-09-17] MEDS ORDERED: fentaNYL citrate 100 MCG/2 ML VIAL IV PRN (13:28)
[2021-09-17] MEDS ORDERED: ePHEDrine sulfate 50 MG/ML AMP IV PRN (13:28)
[2021-09-17] MEDS ORDERED: ATROPINE SULFATE 0.1 MG/ML 10ML SYR IV PRN (13:28)
[2021-09-17] MEDS ORDERED: ONDANSETRON INJ 2 MG/ML 2 ML VIAL IV PRN (13:28)
[2021-09-17] MEDS ORDERED: DROPERIDOL 5 MG/2 ML VIAL IV ONE (13:28)
[2021-09-17] MEDS ORDERED: LARYING-O-JET KIT (LTA) ONE (13:50)
[2021-09-17] MEDS ORDERED: SUCCINYLCHOLINE 100MG/5ML SYR IV ONE (13:50)
[2021-09-17] MEDS ORDERED: ROCURONIUM BROMIDE 10 MG/ML 5 ML VIAL IV ONE (13:50)
--- NOTE | 2021-09-17 14:33 | Operative Report ---
PG Post Operative Report Pre & Post Diagnosis Operation Date: 09/17/21 14:00 Pre-Op Diagnosis: Carious teeth gum inflammation, infection of mouth, developmental disability Post-Op Diagnosis: Carious teeth gum inflammation, infection of mouth, developmental disability I identified the patient and participated in the time-out.: Yes Procedure Operation Date: 09/17/21 14:00 Actual Procedures p Incision and drainage right side of mouth, extraction #31(Right) - Bebeto Herrera DMD Surgeon Bebeto Herrera, DEE Side Framer none Estimated Blood Loss 2 Findings Consistent with Post-Op Diagnosis very tight jaw with limited opening Periodontal infection associated with # 31 # 31 grossly carious with cervical decay Specimens none Drains none Anesthesia Type General Complications none Description of Procedure coding CPT 86670 icd10 K12.2 Pre-op= infected tooth # 31/ subperiosteal infection from grossly carious tooth Once cleared for surgery general anesthesia was achieved, the eyes were protected by the anesthesia dept criteria.. A time out was take for patient ID, antibiotics, equipment and position verification once all agreed the procedure began. Local anesthesia was given into each area using Marcaine with a vasoconstrictor ( 1.8 ml x 2 ). A throat pack was placed after the oral cavity was irrigated with saline. Once a surgical level of anesthesia was obtained and the local anesthesia was given time for the blocks the surgery was started. The jaw was very tight from the current infection I turned my attention to the lower right side # 31 Very difficult Lower tooth # 31 deep cervical decay with recurrent decay and subperiosteal infection CPT 37057 The full thick muco-periosteal flap was made on the external oblique ridge to avoid the lingual nerve extending to # 29 . The flap was reflected to expose the carious #31 tooth. By doing this the infection was drained. The gingival tissue was very irritated due to the cervical decay. The bone was very thick and dense this tooth was ankylosed and did not has the typical periodontal ligament. The drill with a round bur was used to remove bone,a fissure bur was used to split the tooth.The lingual plate was protected. The tooth was removed with a 301 elevator, the nerve was intact. The bone was trimmed,the socket was curetted, smoothed and the flap was closed with a few 2-0 chromic sutures. I inspected the sites to insure all bleeding was controlled. I removed the throat pack and suctioned the throat. A gauze pressure dressings was placed. All instrument and sponge count was correct. The patient was allowed to awake from the anesthesia. Once full awake the anesthesia tube was removed and the patient was taken to the recovery room with all vital sign stable. The patient tolerated the surgery very well. I will follow the patient in my office, Rx and instructions will be given upon discharge. I attest to the content of the Intraoperative Record and any orders documented therein. Any exceptions are noted below.
--- NOTE | 2021-09-17 15:05 | Anesthesiology Progress Note ---
Date of Service September 17, 2021 Anesthesia Post Procedure Vital Signs Vital Signs: Temp Pulse Pulse Resp BP Pulse Ox 09/17/21 15:00 36.3 C L 71 18 149/98 H 96 09/17/21 14:55 79 18 144/92 H 93 09/17/21 14:45 91 H 16 169/105 H 100 09/17/21 14:35 87 21 145/84 H 100 09/17/21 14:27 36.1 C L 83 16 120/88 99 09/17/21 12:00 36.8 C 82 20 126/78 96 09/17/21 08:00 36.8 C 85 20 130/72 96 09/17/21 04:32 36.7 C 09/16/21 19:55 36.7 C 71 18 134/73 96 Pain Intensity Leg: Pain Intensity: 0 Transfer of Care Handoff Completed per policy Notes Mental Status: alert / awake / arousable and participated in evaluation Patient Amnestic to Procedure: Yes Nausea / Vomiting: adequately controlled Pain: adequately controlled Airway Patency, RR, SpO2: stable & adequate BP & HR: stable & adequate Hydration State: stable & adequate Anesthetic Complications: no major complications apparent and Pt Satisfied with anesthetic care
[2021-09-18] MEDS: dexAMETHasone 10 MG in SYRINGE 0 ML IV SCH (02:08)
[2021-09-18] MEDS: AMPICILLIN/SULBACTAM SOD 3,000 MG in 0.9 % SODIUM CHLORIDE 100 ML IV SCH ×2 (04:55→10:34)
[2021-09-18] MEDS: CHLORHEXIDINE GLUCONATE 0.12% 480 ML MT SCH (05:33)
[2021-09-18 06:10] LABS: Basophils # (auto) 0.01 K/uL (0-0.2); Basophils % (auto) 0.1 %; Hematocrit (blood only) 34.8 % (37-47); Hemoglobin 11.3 g/dL (12.0-16.0); Immature Granulocytes % (auto) 0.9 %; Lymphocytes # (auto) 0.88 K/uL (1.2-3.4); Lymphocytes % (auto) 7.9 %; Mean Corpuscular Hemoglobin 26.8 pg (25-34); Mean Corpuscular Hgb Conc 32.5 g/dL (32-36); Mean Corpuscular Volume 82.7 fL (80-100); Mean Platelet Volume 10.4 fL (7.4-10.4); Monocytes # (auto) 0.51 K/uL (0.11-0.59); Monocytes % (auto) 4.6 %; Neutrophils # (auto) 9.62 K/uL (1.4-6.5); Neutrophils % (auto) 86.5 %; Platelet Count 252 K/uL (130-400); RDW Coefficient of Variation 13.1 % (11.5-14.5); RDW Standard Deviation 39.8 fL (36.4-46.3); Red Blood Count 4.21 M/uL (4.2-5.4); White Blood Count 11.12 K/uL (4.8-10.8)
[2021-09-18 06:32] LABS: BUN Creatinine Ratio 18.6 (10-20); Calcium 8.9 mg/dl (8.5-10.1); Creatinine Clr Calc Pharmacy 122.8 ml/min; Est GFR (African American) 133.8 ml/min; Est GFR (Non-African American) 115.5 ml/min; Magnesium 2.2 mg/dl (1.7-2.4)
[2021-09-18] MEDS: HEPARIN SOD 5,000 UNIT/0.5 ML VIAL SQ SCH (07:53)
--- NOTE | 2021-09-18 09:59 | Oral/Maxillofacial Progress Nt ---
Date of Service September 18, 2021 Assessment & Plan Admission and Anticipated Discharge Date Admission Date: September 16, 2021 Subjective POST OP NOTE: 24 hr excellent result doing fantastic The patient did very well post operatively, healing is excellent. Oral care is good, minimal swelling as expected. Tissue tone =healthy normal tissue No sinus or nerve complications noted ROM is still limited discussed the need to massage and exercise. Reviewed oral care=irrigation device given and instructed on use. Reviewed diet, massage, exercise and continued home/oral care RTC October 05 for follow up Overall: Much improved from recent dental infection Results & Data ([facility]) Vital Signs (Past 12 Hours) Vital Signs Temp Pulse Pulse Resp BP Pulse Ox 09/18/21 07:43 36.7 C 56 L 16 117/75 97 09/18/21 05:00 36.5 C 57 L 16 122/81 97 09/18/21 00:57 36.6 C 54 L 16 102/64 97 PG Care Time/CCT Total # of Minutes Spent Total Time Spent with Patient: Total time spent is greater than 50% in coordination of care (as documented) at patient's floor/unit and/or counseling patient: Coding Level of Care Code None
[2021-09-18] MEDS ORDERED: dexAMETHasone 6 MG in SYRINGE 0 ML IV SCH (10:30)
--- NOTE | 2021-09-18 12:35 | Discharge Summary ---
Date of Service September 18, 2021 Admission HPI Per Admitting Provider 30 YOF with past medical history of: Developmental delay, Fe deficient anemia, ovary removal secondary to mass. Patient comes in today for 4-5 days of right sided tooth and jaw pain that has progressed to throat soarness and pain with swallowing. Patient went to dentist earlier in week and thought she may have infection under her right back molar. She was started on PCN. She had no improvement and was brought in today with her family. Reports chills on Saturday/ but no recorded fevers. She had no viral syndrome prior or other bacterial infection sympotms of URI prior. This started with tooth/jaw pain on the back right. She has pain with chewing on that side but has been able to chew and swallow soft diet at home, liquids, and her pills this morning. She is able to swallow her saliva and does not feel any dyspnea or that she is unable to take in a full breath. She is having pain with opening her mouth and can open her mouth approx 2 fingerbreadths, unable to fully visualize the hypop harynx or tonsillar pillars. In the EMD the patient had routine labs drawn to include blood cultures, soft tissue CT scan of the neck. EMD Dr. Cruz spoke with ENT Dr. Perales- reported that films reviewed- recommended Decadron 10mg q8 and Unasyn and will evaluate the patient. ENT consult continued- await evaluation vs. OMFS. Patient will be admitted to PCU for 24 hours to follow her symptoms and airway. Family will need to stay with patient as with her intellectual impairment to make medical decisions. Patient COVID test suraj admission is: NEGATIVE Principal Diagnosis Maxillofcial cellulitis Discharge Exam Neurologic MRDD Discharge Data Allergies Allergy/AdvReac Type Severity Reaction Status Date / Time No Known Allergies Allergy Unverified 09/16/21 10:51 Consultations 09/16/21 12:09 ED Decision to Admit Stat Procedures Performed Operation Date: 09/17/21 14:00 Actual Procedures p extraction #31(Right) - Bebeto Herrera DMD s Incision and drainage right side of mouth, (Right) - Bebeto Herrera DMD Ordered Studies 09/16/21 09:40 CT soft tissue neck w con Stat Hospital Course (1) Infection of mouth: Patient with infection of mouth/soft tissue of the neck vs. tooth/bone- without epiglottis or local cellulitis - Asymmetric soft tissue thickening and fat stranding centered at the angle of the right hemimandible which involves the right masseter muscle, right submandibular gland, inferior right parotid gland, right palatine tonsil, and right aryepiglottic fold. This favors an infectious process. No definite abscess or mass identified. - Patient is exquisite tender to right angle of the mandible and lateral submandibular space, anterior cervical lymph nodes and subclavian enlarged - Voice normal - Able to swallow sections - Without cellulitis or edema extending into the bilateral submandibular or anterior neck - ENT consulted appreciate assistance- Flex scope eval appreciated - OMF consult placed by ENT again thank you for assistance - Decadron 10mg IV q8 - Unasyn 3GM IV q6HR - Await blood cultures - Clears while pending surgical evaluation - PCU monitor airway for next 24-48 hours - OMFS will eval in AM 09/17/21- Improved with steroids and ABX therapy- appreciate coordination by ENT and OMFS - Patient NPO for planned excision and I&D by Dr. Herrera OMFS today at 1400 - Patient airway directly visualized by ENT yesterday- no airway compromise and chords visable- no abscess noted - Symptoms improved today in regards to pain and swelling - No pain medications overnight utilized - Transfer to Medical Surgical Floor today - likely be able to be discharged tomorrow - Continue VTE prophylaxis tonight (2) Developmental disability: - Family to stay with patient while in house for consents and medical decision making - Patient with limited ability to understand complex discussions (3) Anemia: FE deficient - Hold iron sulfate for now - resume when swelling decreases and/or s/p surgical eval Total Time Total Time Spent Total Time Spent (In Minutes): 35 minutes Discharge Plan Discharge Items Patient Disposition: Home - Self-Care Reason For Visit: TOOTH VS SOFT TISSUE INFECTION OF NECK Discharge Diagnosis: infected carious # 31 with periodontal abscess Condition on Discharge: Good Activity: Resume your previous activity Lifting: Gradually increase as tolerated Bathing: No limitations Exercise/Sports: Gradually increase as tolerated Weightbearing: Full weightbearing Non-emergency contact: Surgeon Call non-emergency contact if: you have any medication questions, your temperature is above 101.5, your wound has increased redness, your wound has increased drainage and your wound pain has increased Follow-up/Referrals: Chloe Panchal MD [Primary Care Provider] - Bebeto Herrera, DEE [Physician] - 10/05/21 1:00 pm Diet: Regular Diet Texture: Easy to Chew Diet Comment: start with clear/full diet then advance to dental soft Addtl Attending Provider Instructions: ADDITIONAL ACTIVITY RECOMMENDATIONS: * Zuni teeth after every meal. It is very important to keep your mouth clean to prevent infection. * Starting tonight rinse with the Peridex as directed then 2 x a day * it is very important to keep well hydrated, this prevents fever and possible dry socket pain SPECIAL CARE INSTRUCTIONS: *It is not uncommon that between day 2-4 that your swelling will be at its worst this is very normal, do not be alarmed. * After 36 hours, apply heat (hot water bottle or heating pad) for the next two days, as often as possible. Massage and stretch your jaws as much as you can to get your mouth opening once again * Tomorrow start rinsing your mouth with 1/2 teaspoon salt in 8 ounces warm water. This rinse should be used every 4-6 hours. * You may experience slight nausea. To prevent this, never take your medication on an empty stomach. If nauseated, take small sips of juan maxi until you feel better; then you may start on applesauce and toast. * Some swelling is common. It should gradually decrease within 4-5 days. * A certain amount of bleeding is to be expected. It is often possible to control mild oozing by placing folded gauze over the area and biting down for 30 minutes. If you are unable to control excessive bleeding, call Dr Herrera at [phone] * You may experience some discomfort for a few days. If pain or swelling increases, Call Dr Herrera * Return to the office for a follow up check up on: my office will be calling you to set up your follow up visit * office address--[address] phone # [phone] Pending Studies at Discharge: No Stand-Alone Forms: My [facility] yavalu, Smoking Cessation Medications and DC Order Prescriptions: Continued amoxicillin-pot clavulanate 875-125 mg tablet 1 tab PO Q12H Qty: 20 RF: 0 hydrocodone-acetaminophen 5-325 mg tablet 1 tab PO Q4H PRN (Reason: pain) Qty: 10 RF: 0 ferrous sulfate 325 mg (65 mg iron) Tablet 325 mg PO QAM RF: 0 Discontinued penicillin V potassium 500 mg tablet 500 mg PO QAM RF: 0 Discharge Orders: Discharge Order (Routine); Ordered 09/18/21 Ordered By: Bebeto Herrera Admission Data Admit Date/Time: 09/16/21 12:42 Attending Provider: Richie Grant Admit Provider: Danny Mcgill Primary Care Provider: Chloe Panchal Other Providers: Wyatt Gonzales Other Interventions: Discharge Summary Assessment (RN) Last Done: 09/18/21 10:19 Coding Level of Care Code D/C DAY MANAGEMENT >30 MINS Diagnoses Infection of mouth K12.2 Developmental disability F89 Anemia D64.9
== END 2021-09-18 13:17 | disposition home or self-care (01) | DRG 137 ==
LOC: ED 09:03 → SUATTDRO 12:42 → EDINP 12:42 → 1E 14:43 → 3E 09-17 15:23